=== PATIENT | female | born 1995 | race Caucasian/White ===

== ENCOUNTER 2018-04-26 12:27 | Outpatient (CLI) | payer BC ==
--- NOTE | 2018-04-26 13:35 | RAD ---
LUMBAR SPINE THREE VIEWS: Indication: Low back pain. Comparison: None. FINDINGS: There are five lumbar type vertebrae. Vertebral body heights and disc spaces are well preserved. SI j oints are normal appearing. No acute fracture or subluxation is evident. IMPRESSION: No acute abnormality. POS: [facility]
== END 2018-04-26 12:28 | disposition home or self-care (01) ==
LOC: SCSRAD 12:27
PROVIDERS: ATTEND Chiropractor
DX: M54.5 Low back pain (principal)
CPT/HCPCS: 72100